=== PATIENT | male | born 2000 | race Caucasian/White ===

== ENCOUNTER 2022-04-23 13:52 | Outpatient (CLI) | payer OTHER, SELFPAY ==
--- NOTE | ~2022-04-23 | MR_ITS ---
EXAMINATION: MR wrist RT wo con DATE: 04/23/2022 15:00 INDICATION: Right wrist pain. TECHNIQUE: Magnetic resonance imaging (MRI) of the wrist was performed without intravenous contrast. Sequences performed include coronal T1-weighted FSE, coronal PD-weighted FS FSE, axial PD-weighted FS FSE, axial PD-weighted FSE, sagittal PD-weighted FSE, and sagittal PD-weighted FS FSE. COMPARISON: None FINDINGS: Intrinsic ligaments: There is a partial tear of volar component of scapholunate ligament. Lunotriquetral ligament is stephan l. Triangular fibrocartilage complex (TFCC): The triangular fibrocartilage is normal. Extensor wrist: There is mild tendinopathy of abductor pollicis longus. Flexor wrist: The flexor tendons are normal. Median nerve is normal. Guyon's canal: The ulnar nerve is normal. Bones/other: There is a fracture of dorsal aspect of lunate with 4 mm distraction and edema-like marrow signal int ensity. There are radiocarpal and midcarpal compartment effusions. IMPRESSION: 1. Fracture of dorsal aspect of lunate with 4 mm distraction. Reviewed, dictated and finalized at location A.
== END 2022-04-23 13:53 | disposition home or self-care (01) ==
LOC: ANHIMG 13:56
DX: S62.121A Displaced fracture of lunate [semilunar], right wrist, initial encounter for closed fracture (principal); X58.XXXA Exposure to other specified factors, initial encounter
CPT/HCPCS: 73221